=== PATIENT | female | born 1990 | race Caucasian/White ===

== ENCOUNTER 2020-10-01 10:50 | Emergency (ER) | payer OTHER ==
[~2020-10-01] VITALS: Ht 165.1 cm; Wt 72.6 kg
--- NOTE | 2020-10-01 10:54 | NUR ---
CONTACT INFO:[phone]
[2020-10-01 13:53] VITALS: BP 128/76
== END 2020-10-01 13:54 | disposition home or self-care (01) ==
LOC: ER 10:52
DX: U07.1 COVID-19 (principal); R07.89 Other chest pain; R51.9 Headache, unspecified

== ENCOUNTER 2022-12-19 15:08 | Emergency (ER) | payer OTHER ==
[~2022-12-19] VITALS: Ht 167.6 cm; Wt 131.5 kg
--- NOTE | 2022-12-19 15:44 | NUR ---
DR PEARCE AT BEDSIDE
--- NOTE | 2022-12-19 16:39 | NUR ---
XRAY AT BEDSIDE
--- NOTE | 2022-12-19 16:45 | NUR ---
BLOOD COLLECTED AND SENT TO LAB
--- NOTE | 2022-12-19 16:45 | NUR ---
IV ACCESS ESTABLISHED. R AC 20G
--- NOTE | 2022-12-19 16:46 | NUR ---
COVID SWAB AND FLU SWAB TAKEN AND SENT TO LAB
--- NOTE | 2022-12-19 16:51 | NUR ---
URINE COLLECTED AND SENT TO LAB
[2022-12-19 17:00] LABS: BASOPHILS # (AUTO) 0.1 K/uL (0.0-0.2); BASOPHILS % (AUTO) 0.9 % (0.0-2.0); HEMATOCRIT 38 % (33-45); HEMOGLOBIN 12.2 g/dL (11.5-14.8); LYMPHOCYTES % (AUTO) 15.8 % (20.0-44.0); MEAN CORPUSCULAR HGB CONC 32 g/dl (31.0-36.0); MEAN CORPUSCULAR VOLUME 81 fL (82-100); MONOCYTES # (AUTO) 0.8 K/uL (0.1-1.30); MONOCYTES % (AUTO) 6.8 % (2.0-12.0); NEUTROPHILS # (AUTO) 9.4 K/uL (1.8-8.9); NEUTROPHILS % (AUTO) 75.5 % (43.0-81.0); PLATELET COUNT (AUTO) 359 K/uL (150-450); RED BLOOD CELL COUNT(AUTO) 4.65 MIL/uL (4.0-5.2); WHITE BLOOD COUNT (AUTO) 12.5 K/uL (4.3-11.0)
[2022-12-19 17:10] LABS: BILIRUBIN,URINE NEGATIVE (NEGATIVE); COLOR,URINE YELLOW (YELLOW); LEUKOCYTE ESTERASE ,URINE NEGATIVE (NEGATIVE); NITRITE, URINE NEGATIVE (NEGATIVE); PROTEIN,URINE NEGATIVE (NEGATIVE); UGLUCOSE NEGATIVE (NEGATIVE); UROBILINOGEN,URINE 0.2 EU/dL (0.2)
[2022-12-19 17:16] LABS: BACTERIA,URINE None seen /HPF (None Seen); RBC,URINE 51-80 /HPF (0-2); WBC,URINE 0-2 /HPF (0-3)
[2022-12-19 17:23] LABS: CALCIUM, SERUM 9.1 mg/dL (8.5-10.1); CARBON DIOXIDE 27 mmol/L (21-32); CHLORIDE 104 mmol/L (98-107); CREATININE 0.8 mg/dL (0.6-1.3); GLUCOSE 99 mg/dL (74-106); POTASSIUM 4.2 mmol/L (3.5-5.1); SODIUM SERUM 139 mmol/L (136-145); UREA NITROGEN, BLOOD 10 mg/dL (7-18)
--- NOTE | 2022-12-19 20:02 | NUR ---
Patient discharged to home in stable condition. Written and verbal after care instructions given. Patient verbalizes understanding of instruction.
[2022-12-19 20:03] VITALS: BP 121/76
== END 2022-12-19 20:03 | disposition home or self-care (01) ==
LOC: ER 15:25
DX: R06.02 Shortness of breath (principal); R07.9 Chest pain, unspecified; M54.50 Low back pain, unspecified; Z20.822 Contact with and (suspected) exposure to COVID-19
CPT/HCPCS: 99285; 71045; 87426; 93005; 87804 ×2; 85025; 80048; 85378; 84703; 81001; 36415; 84484 ×2; C9803

== ENCOUNTER 2023-01-09 08:05 | Emergency (ER) | payer MEDICAID, OTHER ==
[~2023-01-09] VITALS: Ht 167.6 cm; Wt 95.3 kg
--- NOTE | 2023-01-09 08:10 | NUR ---
C/O SOB ON INSPIRATION X 2 DAYS.
--- NOTE | 2023-01-09 08:18 | NUR ---
DR. SIMONS AT BEDSIDE FOR EVAL
--- NOTE | 2023-01-09 08:34 | NUR ---
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
--- NOTE | 2023-01-09 08:39 | NUR ---
XRAY AT BEDSIDE
[2023-01-09 08:48] LABS: BASOPHILS % (AUTO) 0.4 % (0.0-2.0); EOSINOPHILS % (AUTO) 1.1 % (0.0-6.0); HEMATOCRIT 35 % (33-45); HEMOGLOBIN 11.2 g/dL (11.5-14.8); LYMPHOCYTES # (AUTO) 1.4 K/uL (0.8-4.8); LYMPHOCYTES % (AUTO) 12.8 % (20.0-44.0); MEAN CORPUSCULAR HGB CONC 32 g/dl (31.0-36.0); MEAN CORPUSCULAR VOLUME 81 fL (82-100); MONOCYTES # (AUTO) 0.9 K/uL (0.1-1.30); MONOCYTES % (AUTO) 8.8 % (2.0-12.0); NEUTROPHILS # (AUTO) 8.2 K/uL (1.8-8.9); NEUTROPHILS % (AUTO) 76.9 % (43.0-81.0); PLATELET COUNT (AUTO) 324 K/uL (150-450); RED BLOOD CELL COUNT(AUTO) 4.32 MIL/uL (4.0-5.2); WHITE BLOOD COUNT (AUTO) 10.7 K/uL (4.3-11.0)
[2023-01-09 09:14] LABS: CALCIUM, SERUM 8.7 mg/dL (8.5-10.1); CARBON DIOXIDE 26 mmol/L (21-32); CHLORIDE 105 mmol/L (98-107); CREATININE 0.8 mg/dL (0.6-1.3); GLUCOSE 104 mg/dL (74-106); POTASSIUM 4.2 mmol/L (3.5-5.1); SODIUM SERUM 137 mmol/L (136-145); UREA NITROGEN, BLOOD 24 mg/dL (7-18)
[2023-01-09] MEDS ORDERED: IBUP-1955 PO ×2 (09:44→11:25)
[2023-01-09] MEDS ORDERED: CYCL5TAB PO ×2 (09:44→11:25)
[2023-01-09] MEDS ORDERED: KETOROLAC TROMETHAMINE 15 MG/ML VIAL ONE (09:56)
[2023-01-09] MEDS ORDERED: KETOROLAC TROMETHAMINE INJ 30 MG/ML VIAL IV ONE (10:00)
[2023-01-09] MEDS ORDERED: BENZ-13 PO ×2 (10:46→11:25)
--- NOTE | 2023-01-09 11:30 | NUR ---
Patient discharged to home in stable condition. Written and verbal after care instructions given. Patient verbalizes understanding of instruction.
[2023-01-09 11:33] VITALS: BP 115/70
== END 2023-01-09 11:30 | disposition home or self-care (01) ==
LOC: ER 08:10
DX: U07.1 COVID-19 (principal); M54.6 Pain in thoracic spine; R05.9 Cough, unspecified; Z79.899 Other long term (current) drug therapy
CPT/HCPCS: 99285; 96374; 71045; 93005; 85025; 80048; 85378; 36415; 84484; J1885

== ENCOUNTER 2023-06-14 02:50 | Emergency (ER) | payer MEDICAID ==
[~2023-06-14] VITALS: Ht 167.6 cm; Wt 129.7 kg
[~2023-06-14 02:50] MED LIST: BENZ-13 PO; CEPH500C2 PO; CYCL5TAB PO; HYDR-3980 PO; IBUP-1955 PO; ONDA4TAB5 PO
[2023-06-14] MEDS ORDERED: PRED20TA PO (03:13)
[2023-06-14] MEDS ORDERED: EPIN0.3P3 IJ (03:13)
[2023-06-14] MEDS ORDERED: FAMO-131 PO (03:13)
[2023-06-14] MEDS ORDERED: CETI-108 PO (03:13)
[2023-06-14 03:14] VITALS: BP 115/59; TEMP 98.2; O2SAT 100
[2023-06-14] MEDS ORDERED: FAMOTIDINE (20 MG) 20 MG TABLET ONE (03:18)
[2023-06-14] MEDS ORDERED: predniSONE 20 MG TABLET ONE (03:18)
[2023-06-14] MEDS ORDERED: FAMOTIDINE (20 MG) 20 MG TABLET PO ONE (03:30)
[2023-06-14] MEDS ORDERED: predniSONE 20 MG TABLET PO ONE (03:30)
== END 2023-06-14 03:44 | disposition home or self-care (01) ==
LOC: ER 02:57
DX: R21 Rash and other nonspecific skin eruption (principal); L29.9 Pruritus, unspecified; R06.02 Shortness of breath; T78.2XXA Anaphylactic shock, unspecified, initial encounter; Z90.49 Acquired absence of other specified parts of digestive tract; Z79.899 Other long term (current) drug therapy
CPT/HCPCS: 99283; J7512